=== PATIENT | male | born 1985 | race Caucasian/White ===

== ENCOUNTER 2021-01-15 03:23 | Emergency (ER) | payer SELFPAY ==
[~2021-01-15] VITALS: Ht 165.1 cm; Wt 68.0 kg
[2021-01-15 03:30] VITALS: BP 113/76
--- NOTE | 2021-01-15 03:30 | NUR ---
TO [facility] VIA WHEEL CHAIR
--- NOTE | 2021-01-15 03:40 | NUR ---
SEEN AND EXAMINED BY NIKUNJ WITH ORDERS, CARRIED OUT.
[2021-01-15] MEDS ORDERED: HYDROcodone/APAP 5/325 MG 1 TAB TAB PO ONE (03:50)
[2021-01-15] MEDS ORDERED: KETOROLAC 60 MG/2 ML VIAL IM ONE (03:50)
[2021-01-15] MEDS ORDERED: GABA-640 PO (03:54)
[2021-01-15] MEDS ORDERED: IBUP-2218 PO (03:54)
[2021-01-15] MEDS ORDERED: HYDR-5080 PO (03:54)
--- NOTE | 2021-01-15 04:10 | NUR ---
MEDICATED PER [facility] ORDER, TOLERATED WELL.
[2021-01-15 04:40] VITALS: BP 113/76
--- NOTE | 2021-01-15 04:40 | NUR ---
Patient discharged with v/s stable. Written and verbal after care instructions given and explained. Patient alert, oriented and verbalized understanding of instructions. Ambulatory with steady gait. All questions addressed prior to discharge. ID band removed. Patient advised to follow up with PMD. Rx of GABAPENTIN, NORCO, IBUPROFEN given. Patient educated on indication of medication including possible reaction and side effects. Opportunity to ask questions provided and answered.
== END 2021-01-15 04:40 | disposition home or self-care (01) ==
LOC: MED 03:23
DX: M54.5 Low back pain (principal); Z79.899 Other long term (current) drug therapy
CPT/HCPCS: 96372; 99283; J1885